=== PATIENT | female | born 1990 | race Hispanic/Latino ===

== ENCOUNTER 2022-03-01 08:24 | Outpatient (CLI) | payer BC | END 2022-03-01 08:25 | disposition home or self-care (01) | LOC: ULT 08:24 | PROVIDERS: ATTEND Nurse Practitioner Family | DX: R10.9 Unspecified abdominal pain (principal); R10.2 Pelvic and perineal pain; R14.0 Abdominal distension (gaseous); N92.6 Irregular menstruation, unspecified | CPT/HCPCS: 76700; 76856; 93976 ==

== ENCOUNTER 2023-05-13 15:31 | Outpatient (CLI) | payer BC | END 2023-05-13 15:32 | disposition home or self-care (01) | LOC: BICRAD 15:31 | PROVIDERS: ATTEND Nurse Practitioner Family | DX: R05.3 Chronic cough (principal); R63.1 Polydipsia | CPT/HCPCS: 71046 ==

== ENCOUNTER 2024-05-09 15:44 | Outpatient (CLI) | payer BC | END 2024-05-09 15:45 | disposition home or self-care (01) | LOC: BICULT 15:44 | PROVIDERS: ATTEND Nurse Practitioner Family | DX: R10.2 Pelvic and perineal pain (principal) | CPT/HCPCS: 76856 ==